=== PATIENT | male | born 1970 | race Caucasian/White ===

== ENCOUNTER 2019-08-11 17:50 | Inpatient (IN) ==
[2019-08-11] MEDS ORDERED: 0.9 % Sodium Chloride 1,000 ML IVC ONE ×2 (17:59→20:50)
[2019-08-11 18:36] LABS: VBG HCO3 19 mEq/L (21-27); VBG PCO2 30 mmHg (41-51); VBG PH 7.42 pH Units (7.32-7.42); VBG PO2 202 mmHg (25-50)
[2019-08-11 18:56] LABS: Immature Platelets 2.7 % (1.1-6.1)
[2019-08-11 18:57] LABS: Amphetamine Screen,Urine Negative ng/mL (Cutoff=1000); Barbiturate Screen,Urine Negative ng/mL (Cutoff=200); Benzodiazepines Screen,Urine Negative ng/mL (Cutoff=200); Cannabinoid Screen,Urine Negative ng/mL (Cutoff = 50); Cocaine Screen,Urine Negative ng/mL (Cutoff= 300); Opiate Screen,Urine Negative ng/mL (Cutoff=300); Phencyclidine Screen,Urine Negative ng/mL (Cutoff=25)
[2019-08-11 18:59] LABS: Bilirubin,Urine Negative (Negative); Blood,Urine Trace (Negative); Clarity,Urine Clear (Clear); Color,Urine Yellow (Yellow); Glucose,Urine (UA) >=1000 mg/dL (Normal); Ketones,Urine 40 mg/dL (Negative); Leukocyte Esterase,Urine Negative (Negative); Nitrite,Urine Negative (Negative); PH,Urine 5.5 pH Units (5.0-8.0); Protein,Urine >=300 mg/dL (Neg-Trace); Specific Gravity,Urine > 1.030 (1.010-1.025); Urobilinogen,Urine Normal (Normal)
[2019-08-11 19:02] LABS: Bacteria,Urine None Seen per hpf (None-Few); Hyaline Casts,Urine None Seen per lpf (None-Few); RBC,Urine 0-3 per hpf (0-3); Squamous Epithelial Cell,Urine Moderate per lpf (None-Few)
[2019-08-11 19:30] LABS: Basophils # 0.1 K/mcL (0.0-0.2); Basophils % 0.8 %; Eosinophils # 0.1 K/mcL (0.0-0.6); Eosinophils % 1.9 %; Hematocrit 35.6 % (37.5-50.1); Lymphocytes % 16.8 %; Mean Corpuscular Volume 90.4 fL (83.0-100.0); Mean Platelet Volume 9.9 fL (9.4-12.4); Monocytes # 0.4 K/mcL (0.0-1.3); Monocytes % 6.8 %; Neutrophils # 4.5 K/mcL (1.6-8.9); Platelet Count 211 K/mcL (140-400); Red Blood Count 3.94 M/mcL (4.19-5.50); Segmented Neutrophils % 72.7 %; White Blood Count 6.2 K/mcL (4.3-11.1)
[2019-08-11 19:36] LABS: Mean Corpuscular Hemoglobin 30.5 pg (28.0-33.3)
[2019-08-11 19:37] LABS: Mean Corpuscular HGB Conc 33.7 g/dL (31.6-35.5)
[2019-08-11 20:10] LABS: BUN/Creatinine Ratio 27 (6-26); Blood Urea Nitrogen 25 mg/dL (6-20); Carbon Dioxide 16 mEq/L (23-29); Chloride 91 mEq/L (98-107); Osmolality,Calculated 285 (280-300); Potassium 4.2 mEq/L (3.5-5.1); eGFR For African Americans > 60 (> 60); eGFR For Non-African Americans > 60 (> 60)
[2019-08-11 20:11] LABS: Acetaminophen < 10 mcg/mL (10-20); Calcium 7.7 mg/dL (8.6-10.3); Ethanol < 10 mg/dL (Less than 10); Salicylate < 2.5 mg/dL (15.0-30.0)
[2019-08-11 20:12] LABS: Sodium 124 mEq/L (136-145)
[2019-08-11 20:14] LABS: Glucose 506 mg/dL (70-105)
[2019-08-11 20:49] LABS: Estimated Average Glucose 326 mg/dl
[2019-08-11] MEDS ORDERED: *HR* Dextrose 50 % in Water (Syg) 50 ML SYRINGE IVP PRN ×2 (20:49→21:57)
[2019-08-11] MEDS: Insulin Human Regular 100 UNIT in 0.9 % Sodium Chloride 100 ML IVC SCH (21:39)
[2019-08-11] MEDS ORDERED: D5% in 0.45% NACL 1,000 ML IVC PRN (21:57)
[2019-08-11] MEDS ORDERED: Insulin LISPRO 300 UNITS/3 ML VIAL SQ PRN (21:57)
[2019-08-11 23:24] LABS: VBG HCO3 17 mEq/L (21-27); VBG PCO2 28 mmHg (41-51); VBG PO2 212 mmHg (25-50)
[2019-08-11] MEDS: Acetaminophen 325 MG TABLET PO PRN (23:24)
[2019-08-11] MEDS: 0.9 % Sodium Chloride 1,000 ML IVC SCH (23:36)
[2019-08-12] MEDS: *HR* Heparin 5,000 UNIT/ML VIAL SQ SCH ×4 (00:22→21:09)
[2019-08-12] MEDS: traZODone 50 MG TABLET PO SCH ×2 (00:22→21:09)
[2019-08-12] MEDS: amLODIPine 5 MG TABLET PO SCH ×2 (00:22→07:56)
[2019-08-12 00:29] LABS: BUN/Creatinine Ratio 29 (6-26); Blood Urea Nitrogen 23 mg/dL (6-20); Calcium 7.3 mg/dL (8.6-10.3); Carbon Dioxide 12 mEq/L (23-29); Chloride 96 mEq/L (98-107); Glucose 322 mg/dL (70-105); Osmolality,Calculated 276 (280-300); Potassium 4.4 mEq/L (3.5-5.1); Sodium 125 mEq/L (136-145); eGFR For African Americans > 60 (> 60); eGFR For Non-African Americans > 60 (> 60)
[2019-08-12] MEDS: D5% in 0.45% NACL w KCl 20 MEQ/1,000 ML MLS IVC PRN (01:13)
[2019-08-12 02:53] LABS: Alanine Aminotransferase 25 Units/L (7-52); Albumin 2.8 g/dL (3.5-5.7); Albumin/Globulin Ratio 1.5 (1.1-2.2); Alkaline Phosphatase 41 Units/L (34-104); Aspartate Amino Transferase 29 Units/L (13-39); BUN/Creatinine Ratio 32 (6-26); Bilirubin,Total 0.2 mg/dL (0.3-1.0); Blood Urea Nitrogen 22 mg/dL (6-20); Calcium 7.3 mg/dL (8.6-10.3); Carbon Dioxide 14 mEq/L (23-29); Chloride 98 mEq/L (98-107); Globulin 1.9 g/dL (2.4-3.5); Glucose 200 mg/dL (70-105); Osmolality,Calculated 273 (280-300); Potassium 3.6 mEq/L (3.5-5.1); Sodium 127 mEq/L (136-145); Total Protein 4.7 g/dL (6.4-8.9); eGFR For African Americans > 60 (> 60); eGFR For Non-African Americans > 60 (> 60)
[2019-08-12] MEDS: Fluticasone Propionate Nasal 50 MCG/SPRAY BOTTLE NS SCH ×3 (04:07→21:12)
[2019-08-12] MEDS: 0.9 % Sodium Chloride 1,000 ML IVC SCH (04:08)
[2019-08-12] MEDS: Acetaminophen 325 MG TABLET PO PRN ×2 (06:15→21:13)
[2019-08-12 07:12] LABS: BUN/Creatinine Ratio 30 (6-26); Blood Urea Nitrogen 18 mg/dL (6-20); Calcium 7.1 mg/dL (8.6-10.3); Carbon Dioxide 17 mEq/L (23-29); Chloride 101 mEq/L (98-107); Glucose 106 mg/dL (70-105); Osmolality,Calculated 266 (280-300); Potassium 3.6 mEq/L (3.5-5.1); Sodium 127 mEq/L (136-145); eGFR For African Americans > 60 (> 60); eGFR For Non-African Americans > 60 (> 60)
[2019-08-12] MEDS: Insulin Human Regular 100 UNIT in 0.9 % Sodium Chloride 100 ML IVC SCH (08:05)
[2019-08-12 10:48] LABS: BUN/Creatinine Ratio 27 (6-26); Blood Urea Nitrogen 16 mg/dL (6-20); Carbon Dioxide 18 mEq/L (23-29); Chloride 100 mEq/L (98-107); Glucose 168 mg/dL (70-105); Osmolality,Calculated 267 (280-300); Potassium 3.8 mEq/L (3.5-5.1); Sodium 126 mEq/L (136-145); eGFR For African Americans > 60 (> 60); eGFR For Non-African Americans > 60 (> 60)
[2019-08-12] MEDS ORDERED: Insulin DETEMIR 100 UNIT/ML X5UNITS SQ ONE (10:58)
[2019-08-12] MEDS ORDERED: Dextrose Gel 15 GM/37.5 ML TUBE PO PRN ×2 (11:00)
[2019-08-12] MEDS ORDERED: *HR* Dextrose 50 % in Water (Syg) 50 ML SYRINGE IVP PRN (11:00)
[2019-08-12] MEDS ORDERED: D5% in Water 1,000 ML IVC PRN (11:00)
[2019-08-12] MEDS ORDERED: Saline Nasal Spray 44 ML BOTTLE NS PRN (11:09)
[2019-08-12] MEDS: Calcium Gluconate 1gm/50mL 1 GM/50 ML BAG IVPB SCH ×2 (12:34→13:24)
[2019-08-12] MEDS: Ondansetron 4 MG/2 ML VIAL IVP PRN ×2 (13:23→21:22)
[2019-08-12] MEDS: Insulin LISPRO 300 UNITS/3 ML VIAL SQ SCH ×3 (13:24→21:19)
[2019-08-12] MEDS ORDERED: Metoclopramide 10 MG/2 ML VIAL IVP PRN (17:37)
[2019-08-12] MEDS ORDERED: Insulin DETEMIR 100 UNIT/ML X5UNITS SQ SCH (21:00)
[2019-08-13] MEDS: *HR* Heparin 5,000 UNIT/ML VIAL SQ SCH ×3 (05:04→20:22)
[2019-08-13 05:56] LABS: BUN/Creatinine Ratio 16 (6-26); Blood Urea Nitrogen 11 mg/dL (6-20); Calcium 7.1 mg/dL (8.6-10.3); Carbon Dioxide 14 mEq/L (23-29); Chloride 96 mEq/L (98-107); Glucose 254 mg/dL (70-105); Osmolality,Calculated 268 (280-300); eGFR For African Americans > 60 (> 60); eGFR For Non-African Americans > 60 (> 60)
[2019-08-13 06:01] LABS: Sodium 125 mEq/L (136-145)
[2019-08-13 06:32] LABS: Chol/HDL Ratio 43.4 (0-4.9); Cholesterol 737 mg/dL (< 200); HDL Cholesterol 17 mg/dL (40-59); Triglycerides 4132 mg/dL (< 150)
[2019-08-13 06:55] LABS: LDL Cholesterol,Direct 114 mg/dL (75-193)
[2019-08-13] MEDS: amLODIPine 5 MG TABLET PO SCH (08:06)
[2019-08-13] MEDS: Insulin LISPRO 300 UNITS/3 ML VIAL SQ SCH ×3 (08:08→22:38)
[2019-08-13] MEDS: Fluticasone Propionate Nasal 50 MCG/SPRAY BOTTLE NS SCH ×2 (08:08→20:20)
[2019-08-13] MEDS ORDERED: Insulin Regular, Human 100 UNIT/ML IV ONE (08:52)
[2019-08-13] MEDS ORDERED: Insulin Regular, Human 100 UNIT/ML IV PRN (08:52)
[2019-08-13] MEDS ORDERED: *HR* Dextrose 50 % in Water (Syg) 50 ML SYRINGE IVP PRN (08:52)
[2019-08-13] MEDS ORDERED: D5% in 0.45% NACL 1,000 ML IVC PRN (08:52)
[2019-08-13] MEDS ORDERED: Aminoglycoside Consult 1 EACH MC ONE (08:53)
[2019-08-13] MEDS ORDERED: Sodium Bicarbonate 50 MEQ/50 ML VIAL IVP ONE (08:54)
[2019-08-13] MEDS ORDERED: Insulin Human Regular 100 UNIT in 0.9 % Sodium Chloride 100 ML IVC SCH ×3 (09:00→12:30)
[2019-08-13] MEDS ORDERED: Insulin Human Regular 8 UNIT in 0.9 % Sodium Chloride 10 ML IV ONE (09:08)
[2019-08-13] MEDS: 0.9 % Sodium Chloride 1,000 ML IVC SCH ×5 (11:45→17:08)
[2019-08-13] MEDS: Acetaminophen 325 MG TABLET PO PRN (12:34)
[2019-08-13 13:55] LABS: BUN/Creatinine Ratio 15 (6-26); Blood Urea Nitrogen 13 mg/dL (6-20); Calcium 8.2 mg/dL (8.6-10.3); Carbon Dioxide 20 mEq/L (23-29); Chloride 95 mEq/L (98-107); Glucose 281 mg/dL (70-105); Osmolality,Calculated 276 (280-300); Potassium 3.8 mEq/L (3.5-5.1); Sodium 128 mEq/L (136-145); eGFR For African Americans > 60 (> 60); eGFR For Non-African Americans > 60 (> 60)
[2019-08-13] MEDS: D5% in 0.45% NACL w KCl 20 MEQ/1,000 ML MLS IVC PRN (15:46)
[2019-08-13] MEDS: D5% in 0.9% NACL w KCl 20 MEQ/1,000 ML MLS IVC SCH (17:36)
[2019-08-13] MEDS ORDERED: Insulin DETEMIR 100 UNIT/ML X5UNITS SQ ONE (17:37)
[2019-08-13 17:55] LABS: BUN/Creatinine Ratio 16 (6-26); Blood Urea Nitrogen 11 mg/dL (6-20); Calcium 7.8 mg/dL (8.6-10.3); Carbon Dioxide 21 mEq/L (23-29); Chloride 102 mEq/L (98-107); Glucose 156 mg/dL (70-105); Osmolality,Calculated 271 (280-300); Potassium 3.3 mEq/L (3.5-5.1); Sodium 129 mEq/L (136-145); eGFR For African Americans > 60 (> 60); eGFR For Non-African Americans > 60 (> 60)
[2019-08-13] MEDS ORDERED: Insulin DETEMIR 100 UNIT/ML X5UNITS SQ SCH (21:00)
[2019-08-13] MEDS: traZODone 50 MG TABLET PO SCH (22:20)
[2019-08-14 01:11] LABS: Basophils % 0.8 %; Eosinophils # 0.1 K/mcL (0.0-0.6); Eosinophils % 2.6 %; Hematocrit 34.1 % (37.5-50.1); Hemoglobin 12.8 g/dL (12.9-16.9); Immature Granulocytes % 0.8 % (0-4); Lymphocytes # 1.1 K/mcL (0.6-4.6); Lymphocytes % 22.3 %; Mean Corpuscular Hemoglobin 33.2 pg (28.0-33.3); Mean Corpuscular Volume 88.3 fL (83.0-100.0); Mean Platelet Volume 9.9 fL (9.4-12.4); Monocytes # 0.5 K/mcL (0.0-1.3); Monocytes % 9.6 %; Neutrophils # 3.2 K/mcL (1.6-8.9); Platelet Count 164 K/mcL (140-400); Red Blood Count 3.86 M/mcL (4.19-5.50); Red Cell Distribution Width 13.8 % (11.5-14.5); Segmented Neutrophils % 63.9 %
[2019-08-14 01:33] LABS: BUN/Creatinine Ratio 15 (6-26); Blood Urea Nitrogen 11 mg/dL (6-20); Calcium 7.8 mg/dL (8.6-10.3); Carbon Dioxide 20 mEq/L (23-29); Chloride 102 mEq/L (98-107); Glucose 235 mg/dL (70-105); Magnesium 1.9 mg/dL (1.6-2.6); Osmolality,Calculated 277 (280-300); Phosphorous 2.2 mg/dL (2.7-4.5); Sodium 130 mEq/L (136-145); eGFR For African Americans > 60 (> 60); eGFR For Non-African Americans > 60 (> 60)
[2019-08-14 01:41] LABS: Mean Corpuscular HGB Conc 37.5 g/dL (31.6-35.5)
[2019-08-14 01:42] LABS: Platelet Estimate Decreased (Normal)
[2019-08-14] MEDS: *HR* Heparin 5,000 UNIT/ML VIAL SQ SCH ×3 (05:53→22:01)
[2019-08-14] MEDS: Fluticasone Propionate Nasal 50 MCG/SPRAY BOTTLE NS SCH ×2 (08:08→20:09)
[2019-08-14] MEDS: amLODIPine 5 MG TABLET PO SCH (08:08)
[2019-08-14] MEDS: Insulin LISPRO 300 UNITS/3 ML VIAL SQ SCH ×4 (08:09→20:14)
[2019-08-14] MEDS: Acetaminophen 325 MG TABLET PO PRN ×2 (09:41→22:42)
[2019-08-14] MEDS ORDERED: Insulin DETEMIR 100 UNIT/ML X5UNITS SQ ONE (20:11)
[2019-08-14] MEDS ORDERED: Insulin DETEMIR 100 UNIT/ML X5UNITS SQ SCH (21:00)
[2019-08-14] MEDS: traZODone 50 MG TABLET PO SCH (22:01)
[2019-08-15] MEDS ORDERED: Insulin DETEMIR 100 UNIT/ML X5UNITS SQ ONE (00:19)
[2019-08-15 01:22] LABS: BUN/Creatinine Ratio 22 (6-26); Blood Urea Nitrogen 18 mg/dL (6-20); Calcium 7.4 mg/dL (8.6-10.3); Carbon Dioxide 18 mEq/L (23-29); Chloride 97 mEq/L (98-107); Glucose 275 mg/dL (70-105); Osmolality,Calculated 278 (280-300); Potassium 3.7 mEq/L (3.5-5.1); Sodium 128 mEq/L (136-145); eGFR For African Americans > 60 (> 60); eGFR For Non-African Americans > 60 (> 60)
[2019-08-15 02:14] LABS: Basophils % 0.8 %; Eosinophils # 0.1 K/mcL (0.0-0.6); Eosinophils % 2.4 %; Hematocrit 35.6 % (37.5-50.1); Immature Granulocytes % 0.8 % (0-4); Lymphocytes # 1.2 K/mcL (0.6-4.6); Lymphocytes % 23.5 %; Mean Corpuscular HGB Conc 36.5 g/dL (31.6-35.5); Mean Corpuscular Volume 90.4 fL (83.0-100.0); Mean Platelet Volume 9.6 fL (9.4-12.4); Monocytes # 0.5 K/mcL (0.0-1.3); Monocytes % 9.4 %; Neutrophils # 3.1 K/mcL (1.6-8.9); Platelet Count 166 K/mcL (140-400); Red Blood Count 3.94 M/mcL (4.19-5.50); Red Cell Distribution Width 13.3 % (11.5-14.5); Segmented Neutrophils % 63.1 %
[2019-08-15] MEDS ORDERED: Insulin LISPRO 300 UNITS/3 ML VIAL SQ ONE (02:42)
[2019-08-15 04:04] LABS: BUN/Creatinine Ratio 22 (6-26); Blood Urea Nitrogen 17 mg/dL (6-20); Calcium 7.4 mg/dL (8.6-10.3); Carbon Dioxide 18 mEq/L (23-29); Chloride 98 mEq/L (98-107); Glucose 271 mg/dL (70-105); Magnesium 1.4 mg/dL (1.6-2.6); Osmolality,Calculated 275 (280-300); Phosphorous 3.7 mg/dL (2.7-4.5); Potassium 3.6 mEq/L (3.5-5.1); Sodium 127 mEq/L (136-145); eGFR For African Americans > 60 (> 60); eGFR For Non-African Americans > 60 (> 60)
[2019-08-15] MEDS: *HR* Heparin 5,000 UNIT/ML VIAL SQ SCH ×3 (05:05→21:09)
[2019-08-15] MEDS: amLODIPine 5 MG TABLET PO SCH (08:19)
[2019-08-15] MEDS: Fluticasone Propionate Nasal 50 MCG/SPRAY BOTTLE NS SCH ×2 (08:20→21:09)
[2019-08-15] MEDS: Insulin LISPRO 300 UNITS/3 ML VIAL SQ SCH ×6 (08:20→21:09)
[2019-08-15] MEDS ORDERED: Insulin DETEMIR 100 UNIT/ML X5UNITS SQ SCH (09:00)
[2019-08-15] MEDS ORDERED: *HR* Dextrose 50 % in Water (Syg) 50 ML SYRINGE IVP PRN ×2 (10:25→14:57)
[2019-08-15] MEDS ORDERED: Insulin Human Regular 100 UNIT in 0.9 % Sodium Chloride 100 ML IVC SCH (10:30)
[2019-08-15] MEDS: Acetaminophen 325 MG TABLET PO PRN (12:10)
[2019-08-15] MEDS: Gabapentin 300 MG CAPSULE PO SCH ×2 (14:45→21:08)
[2019-08-15] MEDS ORDERED: Dextrose Gel 15 GM/37.5 ML TUBE PO PRN ×2 (14:57)
[2019-08-15] MEDS ORDERED: D5% in Water 1,000 ML IVC PRN (14:57)
[2019-08-15] MEDS: D5% in 0.9% NACL w KCl 20 MEQ/1,000 ML MLS IVC SCH (18:37)
[2019-08-15] MEDS: 0.9 % Sodium Chloride 1,000 ML IVC SCH (18:38)
[2019-08-15] MEDS: Insulin DETEMIR 100 UNIT/ML X5UNITS SQ SCH (21:09)
[2019-08-15] MEDS: traZODone 50 MG TABLET PO SCH (22:54)
[2019-08-16 04:01] LABS: Basophils % 0.6 %; Eosinophils # 0.1 K/mcL (0.0-0.6); Eosinophils % 2.3 %; Hematocrit 34.6 % (37.5-50.1); Hemoglobin 12.4 g/dL (12.9-16.9); Immature Granulocytes % 0.6 % (0-4); Lymphocytes # 1.2 K/mcL (0.6-4.6); Lymphocytes % 24.9 %; Mean Corpuscular HGB Conc 35.8 g/dL (31.6-35.5); Mean Corpuscular Hemoglobin 33.6 pg (28.0-33.3); Mean Corpuscular Volume 93.8 fL (83.0-100.0); Mean Platelet Volume 9.6 fL (9.4-12.4); Monocytes # 0.4 K/mcL (0.0-1.3); Monocytes % 8.5 %; Platelet Count 156 K/mcL (140-400); Red Blood Count 3.69 M/mcL (4.19-5.50); Red Cell Distribution Width 13.2 % (11.5-14.5); Segmented Neutrophils % 63.1 %; White Blood Count 4.7 K/mcL (4.3-11.1)
[2019-08-16] MEDS: *HR* Heparin 5,000 UNIT/ML VIAL SQ SCH ×3 (05:09→20:23)
[2019-08-16 05:18] LABS: BUN/Creatinine Ratio 23 (6-26); Blood Urea Nitrogen 16 mg/dL (6-20); Calcium 7.6 mg/dL (8.6-10.3); Carbon Dioxide 19 mEq/L (23-29); Chloride 101 mEq/L (98-107); Glucose 263 mg/dL (70-105); Magnesium 1.6 mg/dL (1.6-2.6); Osmolality,Calculated 282 (280-300); Phosphorous 4.3 mg/dL (2.7-4.5); Potassium 3.6 mEq/L (3.5-5.1); Sodium 131 mEq/L (136-145); eGFR For African Americans > 60 (> 60); eGFR For Non-African Americans > 60 (> 60)
[2019-08-16] MEDS: Fluticasone Propionate Nasal 50 MCG/SPRAY BOTTLE NS SCH ×2 (08:16→20:20)
[2019-08-16] MEDS: Gabapentin 300 MG CAPSULE PO SCH ×3 (08:17→20:23)
[2019-08-16] MEDS: Insulin DETEMIR 100 UNIT/ML X5UNITS SQ SCH ×2 (08:18→20:21)
[2019-08-16] MEDS: Insulin LISPRO 300 UNITS/3 ML VIAL SQ SCH ×7 (08:18→20:21)
[2019-08-16] MEDS: amLODIPine 5 MG TABLET PO SCH (08:18)
[2019-08-16] MEDS: Acetaminophen 325 MG TABLET PO PRN ×2 (08:23→20:22)
[2019-08-16] MEDS: traZODone 50 MG TABLET PO SCH (20:22)
[2019-08-17 05:43] LABS: Basophils % 0.8 %; Eosinophils # 0.1 K/mcL (0.0-0.6); Eosinophils % 2.6 %; Hematocrit 34.9 % (37.5-50.1); Hemoglobin 12.7 g/dL (12.9-16.9); Immature Granulocytes % 1.4 % (0-4); Lymphocytes # 1.2 K/mcL (0.6-4.6); Lymphocytes % 23.7 %; Mean Corpuscular HGB Conc 36.4 g/dL (31.6-35.5); Mean Corpuscular Hemoglobin 33.8 pg (28.0-33.3); Mean Corpuscular Volume 92.8 fL (83.0-100.0); Mean Platelet Volume 9.5 fL (9.4-12.4); Monocytes # 0.4 K/mcL (0.0-1.3); Monocytes % 8.2 %; Neutrophils # 3.1 K/mcL (1.6-8.9); Platelet Count 160 K/mcL (140-400); Red Blood Count 3.76 M/mcL (4.19-5.50); Red Cell Distribution Width 13.4 % (11.5-14.5); Segmented Neutrophils % 63.3 %
[2019-08-17] MEDS: *HR* Heparin 5,000 UNIT/ML VIAL SQ SCH ×3 (06:08→22:32)
[2019-08-17] MEDS: Acetaminophen 325 MG TABLET PO PRN ×2 (08:16→22:32)
[2019-08-17] MEDS: Gabapentin 300 MG CAPSULE PO SCH ×3 (08:16→22:33)
[2019-08-17] MEDS: amLODIPine 5 MG TABLET PO SCH (08:16)
[2019-08-17] MEDS: Insulin DETEMIR 100 UNIT/ML X5UNITS SQ SCH ×2 (08:16→22:33)
[2019-08-17] MEDS: Insulin LISPRO 300 UNITS/3 ML VIAL SQ SCH ×7 (08:17→22:34)
[2019-08-17] MEDS: Fluticasone Propionate Nasal 50 MCG/SPRAY BOTTLE NS SCH ×2 (08:18→22:34)
[2019-08-17 11:08] LABS: BUN/Creatinine Ratio 25 (6-26); Blood Urea Nitrogen 23 mg/dL (6-20); Calcium 8.6 mg/dL (8.6-10.3); Carbon Dioxide 22 mEq/L (23-29); Chloride 98 mEq/L (98-107); Glucose 285 mg/dL (70-105); Osmolality,Calculated 284 (280-300); Phosphorous 3.7 mg/dL (2.7-4.5); Sodium 130 mEq/L (136-145); eGFR For African Americans > 60 (> 60); eGFR For Non-African Americans > 60 (> 60)
[2019-08-17] MEDS ORDERED: Insulin DETEMIR 100 UNIT/ML X5UNITS SQ SCH (21:00)
[2019-08-17] MEDS: traZODone 50 MG TABLET PO SCH (22:33)
[2019-08-18 04:22] LABS: Hematocrit 36.4 % (37.5-50.1); Mean Corpuscular HGB Conc 35.7 g/dL (31.6-35.5); Mean Corpuscular Hemoglobin 32.9 pg (28.0-33.3); Mean Corpuscular Volume 92.2 fL (83.0-100.0); Red Blood Count 3.95 M/mcL (4.19-5.50); Red Cell Distribution Width 13.3 % (11.5-14.5); White Blood Count 5.4 K/mcL (4.3-11.1)
[2019-08-18 04:23] LABS: Basophils % 0.6 %; Eosinophils # 0.2 K/mcL (0.0-0.6); Immature Granulocytes % 1.5 % (0-4); Lymphocytes # 1.3 K/mcL (0.6-4.6); Lymphocytes % 24.3 %; Mean Platelet Volume 9.5 fL (9.4-12.4); Monocytes # 0.5 K/mcL (0.0-1.3); Monocytes % 9.1 %; Neutrophils # 3.3 K/mcL (1.6-8.9); Platelet Count 180 K/mcL (140-400); Segmented Neutrophils % 61.5 %
[2019-08-18 05:49] LABS: BUN/Creatinine Ratio 31 (6-26); Blood Urea Nitrogen 24 mg/dL (6-20); Calcium 7.7 mg/dL (8.6-10.3); Carbon Dioxide 18 mEq/L (23-29); Chloride 101 mEq/L (98-107); Glucose 276 mg/dL (70-105); Magnesium 1.6 mg/dL (1.6-2.6); Osmolality,Calculated 286 (280-300); Phosphorous 4.7 mg/dL (2.7-4.5); Potassium 3.9 mEq/L (3.5-5.1); Sodium 131 mEq/L (136-145); eGFR For African Americans > 60 (> 60); eGFR For Non-African Americans > 60 (> 60)
[2019-08-18] MEDS: *HR* Heparin 5,000 UNIT/ML VIAL SQ SCH ×3 (06:43→20:41)
[2019-08-18] MEDS: amLODIPine 5 MG TABLET PO SCH (08:11)
[2019-08-18] MEDS: Gabapentin 300 MG CAPSULE PO SCH ×3 (08:11→22:06)
[2019-08-18] MEDS: Fluticasone Propionate Nasal 50 MCG/SPRAY BOTTLE NS SCH ×2 (08:12→20:41)
[2019-08-18] MEDS: Insulin DETEMIR 100 UNIT/ML X5UNITS SQ SCH ×2 (08:12→20:41)
[2019-08-18] MEDS: Fenofibrate 54 MG TABLET PO SCH (08:12)
[2019-08-18] MEDS: Insulin LISPRO 300 UNITS/3 ML VIAL SQ SCH ×7 (08:13→20:36)
[2019-08-18] MEDS: Acetaminophen 325 MG TABLET PO PRN (08:20)
[2019-08-18] MEDS ORDERED: hydrOXYzine pamoate 25 MG CAPSULE PO PRN (09:48)
[2019-08-18] MEDS ORDERED: Ondansetron ODT 4 MG TAB.RAPDIS SL PRN (11:20)
[2019-08-18] MEDS: traZODone 50 MG TABLET PO SCH (22:06)
[2019-08-19 04:38] LABS: Basophils % 0.6 %; Eosinophils # 0.1 K/mcL (0.0-0.6); Eosinophils % 2.2 %; Hematocrit 35.1 % (37.5-50.1); Hemoglobin 12.4 g/dL (12.9-16.9); Immature Granulocytes % 1.2 % (0-4); Lymphocytes # 1.1 K/mcL (0.6-4.6); Lymphocytes % 21.7 %; Mean Corpuscular HGB Conc 35.3 g/dL (31.6-35.5); Mean Corpuscular Hemoglobin 33.5 pg (28.0-33.3); Mean Corpuscular Volume 94.9 fL (83.0-100.0); Mean Platelet Volume 10.2 fL (9.4-12.4); Monocytes # 0.5 K/mcL (0.0-1.3); Monocytes % 9.9 %; Neutrophils # 3.2 K/mcL (1.6-8.9); Platelet Count 161 K/mcL (140-400); Red Cell Distribution Width 13.2 % (11.5-14.5); Segmented Neutrophils % 64.4 %; White Blood Count 4.9 K/mcL (4.3-11.1)
[2019-08-19 05:01] LABS: BUN/Creatinine Ratio 24 (6-26); Blood Urea Nitrogen 23 mg/dL (6-20); Calcium 8.7 mg/dL (8.6-10.3); Carbon Dioxide 22 mEq/L (23-29); Chloride 98 mEq/L (98-107); Glucose 315 mg/dL (70-105); Magnesium 1.9 mg/dL (1.6-2.6); Osmolality,Calculated 284 (280-300); Phosphorous 3.7 mg/dL (2.7-4.5); Potassium 3.9 mEq/L (3.5-5.1); Sodium 129 mEq/L (136-145); eGFR For African Americans > 60 (> 60); eGFR For Non-African Americans > 60 (> 60)
[2019-08-19] MEDS: *HR* Heparin 5,000 UNIT/ML VIAL SQ SCH ×3 (05:44→21:44)
[2019-08-19] MEDS: Insulin LISPRO 300 UNITS/3 ML VIAL SQ SCH ×7 (07:45→21:46)
[2019-08-19] MEDS: amLODIPine 5 MG TABLET PO SCH (07:45)
[2019-08-19] MEDS: Gabapentin 300 MG CAPSULE PO SCH ×3 (07:45→21:44)
[2019-08-19] MEDS: Fenofibrate 54 MG TABLET PO SCH (07:45)
[2019-08-19] MEDS: Fluticasone Propionate Nasal 50 MCG/SPRAY BOTTLE NS SCH ×2 (07:46→21:46)
[2019-08-19] MEDS: Insulin DETEMIR 100 UNIT/ML X5UNITS SQ SCH ×2 (07:49→21:44)
[2019-08-19] MEDS: Acetaminophen 325 MG TABLET PO PRN ×2 (09:54→21:43)
[2019-08-19] MEDS ORDERED: 0.9 % Sodium Chloride 1,000 ML IVC SCH (13:00)
[2019-08-19] MEDS: *HR* Metformin 500 MG TABLET PO SCH (16:44)
[2019-08-19] MEDS: traZODone 50 MG TABLET PO SCH (21:44)
[2019-08-20] MEDS: *HR* Heparin 5,000 UNIT/ML VIAL SQ SCH ×3 (05:12→20:59)
[2019-08-20] MEDS: Insulin DETEMIR 100 UNIT/ML X5UNITS SQ SCH ×2 (07:35→21:00)
[2019-08-20] MEDS: *HR* Metformin 500 MG TABLET PO SCH ×2 (07:35→17:27)
[2019-08-20] MEDS: Acetaminophen 325 MG TABLET PO PRN ×2 (07:35→20:59)
[2019-08-20] MEDS: Fenofibrate 54 MG TABLET PO SCH (07:35)
[2019-08-20] MEDS: Gabapentin 300 MG CAPSULE PO SCH ×3 (07:35→20:59)
[2019-08-20] MEDS: Fluticasone Propionate Nasal 50 MCG/SPRAY BOTTLE NS SCH ×2 (07:35→21:00)
[2019-08-20] MEDS: amLODIPine 5 MG TABLET PO SCH (07:35)
[2019-08-20] MEDS: Insulin LISPRO 300 UNITS/3 ML VIAL SQ SCH ×7 (07:38→21:01)
[2019-08-20] MEDS: *HR* Pioglitazone 30 MG TABLET PO SCH (12:15)
[2019-08-20] MEDS: Ringers Solution, Lactated 1,000 ML IVC SCH (12:18)
[2019-08-20] MEDS: traZODone 50 MG TABLET PO SCH (22:58)
[2019-08-21] MEDS: Ringers Solution, Lactated 1,000 ML IVC SCH (01:46)
[2019-08-21] MEDS: *HR* Heparin 5,000 UNIT/ML VIAL SQ SCH ×3 (06:01→22:03)
[2019-08-21] MEDS: amLODIPine 5 MG TABLET PO SCH (08:02)
[2019-08-21] MEDS: *HR* Pioglitazone 30 MG TABLET PO SCH (08:02)
[2019-08-21] MEDS: *HR* Metformin 500 MG TABLET PO SCH ×2 (08:03→16:53)
[2019-08-21] MEDS: Fluticasone Propionate Nasal 50 MCG/SPRAY BOTTLE NS SCH ×2 (08:03→22:03)
[2019-08-21] MEDS: Gabapentin 300 MG CAPSULE PO SCH ×3 (08:03→22:02)
[2019-08-21] MEDS: Fenofibrate 54 MG TABLET PO SCH (08:03)
[2019-08-21] MEDS: Insulin LISPRO 300 UNITS/3 ML VIAL SQ SCH ×7 (08:05→20:53)
[2019-08-21] MEDS: Insulin DETEMIR 100 UNIT/ML X5UNITS SQ SCH ×2 (08:05→22:03)
[2019-08-21] MEDS: Acetaminophen 325 MG TABLET PO PRN ×3 (08:16→22:02)
[2019-08-21] MEDS: traZODone 50 MG TABLET PO SCH (22:02)
[2019-08-22] MEDS: *HR* Heparin 5,000 UNIT/ML VIAL SQ SCH ×2 (06:25→15:11)
[2019-08-22] MEDS: amLODIPine 5 MG TABLET PO SCH (07:53)
[2019-08-22] MEDS: Insulin LISPRO 300 UNITS/3 ML VIAL SQ SCH ×6 (07:53→16:48)
[2019-08-22] MEDS: *HR* Metformin 500 MG TABLET PO SCH ×2 (07:53→16:48)
[2019-08-22] MEDS: Fluticasone Propionate Nasal 50 MCG/SPRAY BOTTLE NS SCH (07:53)
[2019-08-22] MEDS: Gabapentin 300 MG CAPSULE PO SCH ×2 (07:53→15:10)
[2019-08-22] MEDS: Insulin DETEMIR 100 UNIT/ML X5UNITS SQ SCH (07:53)
[2019-08-22] MEDS: Fenofibrate 54 MG TABLET PO SCH (07:53)
[2019-08-22] MEDS: *HR* Pioglitazone 30 MG TABLET PO SCH (07:59)
[2019-08-22] MEDS: Acetaminophen 325 MG TABLET PO PRN (15:10)
[2019-08-22 16:12] VITALS: BP 158/85
[2019-08-22] MEDS ORDERED: Insulin DETEMIR 100 UNIT/ML X5UNITS SQ SCH (21:00)
== END 2019-08-22 16:54 | DRG 420 ==
LOC: 2NNU 17:50 → EMEROOARM 17:50 → 2NNU 22:20 → SUATTDRO 08-13 16:03 → 2ANU 08-14 13:01
PROVIDERS: ADMIT Student in an Organized Health Care Education/Training Program; ATTEND Internal Medicine

== ENCOUNTER 2019-08-22 17:01 | Inpatient (IN) ==
[2019-08-22] MEDS ORDERED: *HR* LORazepam 1 MG TABLET PO PRN (17:25)
[2019-08-22] MEDS ORDERED: *HR* LORazepam 2 MG/ML VIAL IM PRN (17:25)
[2019-08-22] MEDS ORDERED: MOM Conc 10 ML UD.LIQ PO PRN (17:25)
[2019-08-22] MEDS ORDERED: Mag Hydrox/Al Hydrox/Simeth 30 ML UDC PO PRN (17:25)
[2019-08-22] MEDS ORDERED: QUEtiapine Fumarate 25 MG TABLET PO PRN (17:25)
[2019-08-22] MEDS ORDERED: Haloperidol Lactate 5 MG/ML VIAL IM PRN (17:25)
[2019-08-22] MEDS ORDERED: hydrOXYzine pamoate 25 MG CAPSULE PO PRN (17:29)
[2019-08-22] MEDS: Fluticasone Propionate Nasal 50 MCG/SPRAY BOTTLE NS SCH (20:27)
[2019-08-22] MEDS: Gabapentin 300 MG CAPSULE PO SCH (20:27)
[2019-08-22] MEDS: Insulin DETEMIR 100 UNIT/ML X5UNITS SQ SCH (20:28)
[2019-08-22] MEDS: traZODone 50 MG TABLET PO SCH (21:25)
[2019-08-23] MEDS: Insulin DETEMIR 100 UNIT/ML X5UNITS SQ SCH ×2 (08:03→20:18)
[2019-08-23] MEDS: *HR* Pioglitazone 30 MG TABLET PO SCH (08:03)
[2019-08-23] MEDS: *HR* Metformin 500 MG TABLET PO SCH ×2 (08:03→16:26)
[2019-08-23] MEDS: Insulin LISPRO 300 UNITS/3 ML VIAL SQ SCH ×3 (08:13→16:26)
[2019-08-23] MEDS: Gabapentin 300 MG CAPSULE PO SCH ×3 (09:02→20:18)
[2019-08-23] MEDS: Fenofibrate 54 MG TABLET PO SCH (09:02)
[2019-08-23] MEDS: amLODIPine 5 MG TABLET PO SCH (09:03)
[2019-08-23] MEDS: Fluticasone Propionate Nasal 50 MCG/SPRAY BOTTLE NS SCH ×2 (09:03→20:17)
[2019-08-23] MEDS: Acetaminophen 325 MG TABLET PO PRN (17:50)
[2019-08-23] MEDS: traZODone 50 MG TABLET PO SCH (20:56)
[2019-08-24] MEDS: Insulin LISPRO 300 UNITS/3 ML VIAL SQ SCH ×3 (08:13→16:35)
[2019-08-24] MEDS: Insulin DETEMIR 100 UNIT/ML X5UNITS SQ SCH ×2 (08:16→20:32)
[2019-08-24] MEDS: *HR* Pioglitazone 30 MG TABLET PO SCH (08:22)
[2019-08-24] MEDS: *HR* Metformin 500 MG TABLET PO SCH ×2 (08:22→16:29)
[2019-08-24] MEDS: Fenofibrate 54 MG TABLET PO SCH (08:23)
[2019-08-24] MEDS: Gabapentin 300 MG CAPSULE PO SCH ×3 (08:23→20:32)
[2019-08-24] MEDS: Fluticasone Propionate Nasal 50 MCG/SPRAY BOTTLE NS SCH ×2 (08:23→20:33)
[2019-08-24] MEDS: amLODIPine 5 MG TABLET PO SCH (08:23)
[2019-08-24] MEDS: Acetaminophen 325 MG TABLET PO PRN ×2 (09:22→16:30)
[2019-08-24] MEDS: traZODone 50 MG TABLET PO SCH (21:16)
[2019-08-25] MEDS: Insulin DETEMIR 100 UNIT/ML X5UNITS SQ SCH (08:07)
[2019-08-25] MEDS: Fluticasone Propionate Nasal 50 MCG/SPRAY BOTTLE NS SCH (08:08)
[2019-08-25] MEDS: Insulin LISPRO 300 UNITS/3 ML VIAL SQ SCH (08:08)
[2019-08-25 08:15] VITALS: BP 134/86
[2019-08-25] MEDS: Gabapentin 300 MG CAPSULE PO SCH (08:53)
[2019-08-25] MEDS: *HR* Metformin 500 MG TABLET PO SCH (08:53)
[2019-08-25] MEDS: amLODIPine 5 MG TABLET PO SCH (08:53)
[2019-08-25] MEDS: *HR* Pioglitazone 30 MG TABLET PO SCH (08:54)
[2019-08-25] MEDS: Fenofibrate 54 MG TABLET PO SCH (08:54)
== END 2019-08-25 10:50 | DRG 751 ==
LOC: 1ANU 17:01
PROVIDERS: ADMIT Psychiatry & Neurology Psychiatry; ATTEND Psychiatry & Neurology Psychiatry